=== PATIENT | female | born 1990 | race Caucasian/White ===

== ENCOUNTER 2020-01-15 00:34 | Day surgery (SDC) | payer OTHER, SELFPAY ==
[2020-01-01 12:32] VITALS: BMI 31.4
[2020-01-15] VITALS (8 sets, daily range): BP systolic 112–128; BP diastolic 72–90; PULSE 66–100; RESP 14–18; TEMP 36.2–36.4; O2SAT 94–100
[2020-01-15] MEDS: LACTATED RINGERS 1,000 ML 30 ML IV CONT ×2 (07:00→11:38)
--- NOTE | 2020-01-15 07:02 | WPDHPUPDATE1 ---
History and Physical Update Update Date/Time: 01/15/20 07:02 History and Physical has been reviewed, including an updated exam of the patient. There are NO changes in the patient's condition. Risks, benefits, and alternatives have been discussed and questions answered. Patient agrees to proceed with procedure.
[2020-01-15 07:36] LABS: Urine Cotinine NEGATIVE
--- NOTE | 2020-01-15 07:45 | P.PNAN_ITS ---
Anes - Initial Pre Proc Eval Procedure: Operation Date: 01/15/20 08:30 Proposed Procedures p Bilateral Breast Reduction - Ernesto Dukes MD Date/Time: 01/15/20 07:45 Surgeon: Ernesto Dukes MD Pre Op Diagnosis: Macromastia Patient Data Age: 29 Gender: F Height: 1.68 m Weight: 88.45 kg Allergies Allergy/AdvReac Type Severity Reaction Status Date / Time No Known Allergies Allergy Verified 01/15/20 07:44 Home Medications Medication Instructions Recorded Confirmed Type cholecalciferol (vitamin D3) 25 25 mcg PO DAILY 11/19/19 01/15/20 History mcg (1,000 unit) capsule levothyroxine 100 mcg tablet 100 mcg PO DAILY 11/19/19 01/15/20 History mecobalamin (vitamin B12) 1,000 1,000 mcg SUBLINGUAL DAILY 11/19/19 01/15/20 History mcg disintegrating tablet,sublingual hydrocodone 5 mg-acetaminophen 325 1 tablet PO Q6H PRN #15 tablet 01/02/20 01/15/20 Rx mg tablet ondansetron HCl 4 mg tablet 4 mg PO Q6H PRN #28 tablet 01/02/20 01/15/20 Rx Laboratory Tests 01/15/20 07:22 Cotinine Negative Patient hx anesthesia problems: none Family hx anesthesia problems: none [facility] Past Medical History Medical History (Updated 01/14/20 @ 09:13 by Kt Donato DO) Anxiety Hypothyroid Social History Social History Smoking status: Never smoker Alcohol intake: current Substance use: never Anes - Eval Final PreProcedure Day of Procedure 01/15/20 07:45 Patient weight: obese Heart: regular rate and rhythm Lungs: clear to auscultation and normal air movement Airway: Mallampati scale class II Neurological: alert and oriented Last oral intake: >/= 8 hours ASA classification: II Emergent: no Anesthetic plan: proceed Anesthesia type and monitoring: general LMA and standard monitoring Informed Consent: The patient's anesthetic plan and its attendant risks and benefits were discussed with the patient/family/POA. Questions were solicited and answers provided to the satisfaction of the patient/family/POA.
[2020-01-15] MEDS: ceFAZolin 2 GM/D5W 50 ML 2 GM/50 ML BAG IVPB (08:36)
--- NOTE | 2020-01-15 10:46 | SUR.OPER ---
ebl:30cc
--- NOTE | 2020-01-15 11:47 | PM.PROC ---
Procedure Note - Detailed Date of procedure: 01/15/20 Pre-op diagnosis: Macromastia Post-op diagnosis: same Procedure performed: Bilateral breast reduction Description of procedure: She is here today for bilateral breast reduction. Previously and again today the risks, benefits, alternatives were discussed in extensive detail. I wanted her to be very realistic about the risks involved as well as expectations. We discussed aftercare and what to monitor for. She understands we can never guarantee final breast size and there will always be asymmetry. I was very upfront and honest about the risks of sensation change and even nipple loss (). Made sure answered all of her questions to her satisfaction today and consent was obtained. She was marked in the preoperative holding area with their verification. The patient was taken to the operating room placed supine on the operating table. Anesthesia was provided by anesthesiology. She was prepped and draped in a standard sterile fashion. A surgical time-out was taken. Stab incisions were made and I tumessed with a tumescent solution. I marked out the nipple-areolar complex at 42 mm. I then de-epithelialized the pedicle. The pedicle was well left well more than 2 cm in thickness. I then removed the inferior portion of the breast as well as the central keel to get shape based on preoperative planning. At this point copiously irrigated with saline solution and verified a strict hemostasis. I reapproximated the pillars using a 2-0 PDS as well as along the IMF. I tailor tacked the breast into place with kapil. She was placed in a sitting position. She had a degress of shap / volume asymmetry and I corrected with with a 4mm Basket canula on power assisted liposuction using S.A.F.E. technique. I verified the nipple-areolar complex position based on preoperative markings, intraoperative measurements, and observation which were in full agreement. This nipple-areolar complex was marked at 42 mm in size. I then placed supine and de-epithelialized this. Nipple-areolar complex was inset with 3-0 Monocryl. I closed the vertical incision with 3-0 Monocryl in the IMF with 3-0 stratafix. Then everything was closed using a running subcuticular 4-0 Monocryl followed by Steri-Strips. A dressing was placed followed by surgical bra. Patient was awoke and taken to PACU without difficulty. All instrument sponge counts were correct at the end of the case. Anesthesia: GLMA Surgeon: Ernesto Dukes MD Estimated blood loss (mL): 30 Drains: No Packing: No Pathology: yes (Bilateral breast tissue) Complications: No immediate complications Condition: stable Disposition: PACU Findings: Tissue removed Right: 893 grams Left: 907 grams
--- NOTE | 2020-01-15 13:15 | SUR.PHASEII ---
1315: Called Dr. Dukes's office to report signifcant drainage noted from surgical site.
--- NOTE | 2020-01-15 14:01 | SUR.PHASEII ---
1340: 4x4 and new surgical bra applied to patient.
== END 2020-01-15 13:55 | disposition home or self-care (01) ==
PROVIDERS: PCP Internal Medicine; Visit Provider Surgery Plastic and Reconstructive Surgery
PROC: 0HBV0ZZ Excision of Bilateral Breast, Open Approach (ICD-10-PCS; CPT 19318; principal; 2020-01-15 08:30)
DX: N62 Hypertrophy of breast (principal); N60.32 Fibrosclerosis of left breast; N60.31 Fibrosclerosis of right breast; N60.42 Mammary duct ectasia of left breast; N60.41 Mammary duct ectasia of right breast; E03.9 Hypothyroidism, unspecified; F41.9 Anxiety disorder, unspecified; E66.9 Obesity, unspecified; Z68.31 Body mass index [BMI] 31.0-31.9, adult
CPT/HCPCS: 19318; 36415; 80307; 88305; J0131; J0171; J0690; J1100; J1170; J2250; J2405; J2704; J3010; J7120

== ENCOUNTER 2023-07-08 07:54 | Outpatient (CLI) | payer OTHER, SELFPAY ==
--- NOTE | 2023-07-08 08:03 | ECG_ITS ---
Measurements Intervals [place] Rate: 72 P: 28 [place]: 169 QRS: 36 QRSD: 98 T: 47 QT: 409 QTc: 450 Interpretive Statements REDUCED ECG QUALITY WITH BASELINE ARTIFACT SINUS RHYTHM GROSSLY NORMAL ECG NO PREVIOUS ECG AVAILABLE FOR COMPARISON Electronically Signed On 07-08-2023 14:44:33 CDT by Spencer Goodwin M.D.
[2023-07-08 08:37] LABS: Hematocrit 40.1 % (37.0-47.0); Hemoglobin 13.1 g/dL (12.0-15.0)
== END 2023-07-08 07:55 | disposition home or self-care (01) ==
PROVIDERS: Anesthesiology; PCP Internal Medicine; Visit Provider Surgery Plastic and Reconstructive Surgery
DX: Z01.812 Encounter for preprocedural laboratory examination (principal); Z01.810 Encounter for preprocedural cardiovascular examination; L57.4 Cutis laxa senilis; K42.9 Umbilical hernia without obstruction or gangrene
CPT/HCPCS: 36415; 85014; 85018; 93005

== ENCOUNTER 2023-07-12 01:08 | Day surgery (SDC) | payer OTHER, SELFPAY ==
[2023-07-06 14:54] VITALS: BMI 33.7
--- NOTE | 2023-07-06 15:18 | SUR.PREOP ---
Report to the Outpatient Waiting Room, entrance under the green pavilion located off [facility], at time 0630 on date 07/12/2023. Planned Procedure Time: 0830. Time changes happen often and if your time is changed the preop area will call you the afternoon before. - You and your visitor will be asked to self-screen and do not enter if you have any COVID symptoms. - A mask is optional within the hospital at this time. Patients may have clear liquids (water, carbonated beverages, clear teas, apple juice) until 3 hours prior to surgery with a maximum of 20 ounces- 0530. - No food from midnight until time of surgery - Infants may have breast milk until 4 hours before surgery, infant formula 6 hours prior to surgery. - Children will be allowed to drink immediately following surgery. If applicable, please bring a bottle or sippy cup to assist with drinking. Juice, water, soda, and popsicles are readily available. For infants on formula, please bring formula the day of surgery. Pacifiers are allowed. Take the following medications with a SIP of water the morning of surgery: Levothyroxine, Lexapro DO NOT STOP ANY OF YOUR OTHER PRESCRIPTION MEDICATIONS PRIOR TO SURGERY ?EXCEPT THE FOLLOWING Medications to discontinue per physician: Vitamins/supplements- 3 days Date to take last dose 07/09/2023 Please no make-up, nail indonesian, hairspray, perfume, deodorant, or body powder the day of surgery. No jewelry (including any body piercings) or valuables the day of surgery, leave them at home. Please take a shower or bath the morning of surgery with Hibiclens soap. Wear comfortable, loose fitting clothing. Children are encouraged to wear pajamas. - Jewelry must be removed prior to entering the operating room. Rings and piercings that are not removed may be cut off. - The hospital will not accept responsibility for valuables. - Please leave all valuables, including medications, at home the day of surgery. If you are going home after surgery, a licensed local company flatbed truck driver must drive you home. - NO public transportation without another adult if you receive anesthesia. - We recommend that an adult stay with you for 24 hours following discharge. - We also recommend that you do not drive, make important decision, drink alcoholic beverages, or take any drugs that were not prescribed by your health care provider for at least 24 hours after your discharge time. For Pediatric surgeries, we recommend two adults accompany the child home. Follow any additional instructions given to you from your surgeon. If you or anyone in your household have experienced Covid symptoms in the past week, please notify your surgeon or the nurse liaison at the phone number below for possible testing. Telephone instructions given to ____patient and asked if any additional questions and then verbalized understanding. Patient advised to call surgeon office or pre surgery nurse liaison [phone] if any additional questions.
[2023-07-12] VITALS (10 sets, daily range): BP systolic 106–150; BP diastolic 68–84; PULSE 65–91; RESP 12–20; TEMP 35.7–36.6; O2SAT 92–98
--- NOTE | 2023-07-12 07:16 | W.PM.PROC2 ---
Procedure Note - Detailed Date of Procedure 07/12/23 Pre-op Diagnosis skin laxity, Umbilical Hernia Post-op Diagnosis Same Procedure Performed Progressive tension abdominoplasty with suction lipectomy Surgeon Ernesto Dukes MD Anesthesia General Findings Tissue removed: 2218 grams Lipoaspirate: 3,350 cc Description of Procedure They are here today for the above procedures. Previously and again today the risks, benefits, alternatives were discussed in extensive detail. I wanted them to be very realistic about the risks involved as well as expectations. We discussed aftercare and what to monitor for. I was very upfront about the risks of wound breakdown leading to loss of skin, open wounds, and need for additional procedures with permanent abdominal deformity. We discussed DVT/PE risks and management. Made sure answered all of their questions to their satisfaction today and consent was obtained. They were marked in the preoperative holding area with their verification. The patient was taken to the operating room. Anesthesia was provided by anesthesiology. A Staton catheter was started. Placed prone on the operating room table with care taken to protect from injury. Prepped and draped in a standard sterile fashion. A surgical time-out was taken. Stab incisions were made and tumescent solution was infiltrated. Once adequate time was allowed for hemostasis a 5mm basket and 3mm multi hole cannula were utilized to complete suction lipectomy based on S.A.F.E. technique in multiple planes and passes. Suction lipectomy continued to result based on pre-operative planning, intra-operative observation, and rolling pinch test which were in full agreement. Patient was then placed supine with care taken to protect from injury. I placed the patient in a flexed position to verify the upper and lower markings would reach. I then placed supine. A thorough abdominal examination was completed. Stab incisions were made and tumescent solution infiltrated. Stab incisions were made and tumescent solution was infiltrated. Once adequate time was allowed for hemostasis a 5mm basket and 3mm multi hole cannula were utilized to complete suction lipectomy based on S.A.F.E. technique in multiple planes and passes. Suction lipectomy continued to result based on pre-operative planning, intra-operative observation, and rolling pinch test which were in full agreement. A 10 blade was used to make the upper incision. I continued dissection down to the level of fascia. Elevated just what was necessary for repair of the diastasis. I then again flexed the bed to verify the upper skin flap would reach the lower markings without tension. Once verified I placed her supine once again and a 10 blade used to make the lower incision. I elevated up to level the umbilicus and left the umbilicus intact on a well-vascularized stalk. The intervening tissue was removed. A 2 mm blunt cannula with 0.5% bupivicaine was injected deep to the fascia bilaterally. I plicated the diastasis recti using 0 PDO stratafix barbed suture. This was in 2 separate layers using 2 separate sutures as well. I repaired around the umbilicus leaving plenty of room for well-vascularized stalk of the umbilicus with 2-0 PDS. I also repaired lateral to the rectus using two layers of 0 PDO stratafix. The patient was flexed and starting from superior to inferior began plication using 2-0 Vicryl to obliterate all space in a standard progressive tension fashion. At the umbilicus I marked out the location of the skin and inset this with 3-0 Monocryl and 4-0 Vicryl. I continued the remainder of the plication using 2-0 Vicryl until I reached my lower planned scar line. I trimmed any excess skin of the upper flap making sure this was a tension-free closure. 15 Sumeet drain was placed. I then approximated using a 3 point suture with 2-0 Vicryl followed by 3-0 stratafix ,running subcuticular 4-0 Monocryl
--- NOTE | 2023-07-12 07:22 | WPDHPUPDATE1 ---
History and Physical Update Update Date/Time: 07/12/23 07:22 History and Physical has been reviewed, including an updated exam of the patient. There are NO changes in the patient's condition. Risks, benefits, and alternatives have been discussed and questions answered. Patient agrees to proceed with procedure.
--- NOTE | 2023-07-12 07:22 | PM.IMHP ---
H&P: HPI History of Present Illness Date/Time: 07/12/23 07:22 Chief Complaint: umbilical hernia Narrative: 32 yo woman presents for umbilical hernia in conjunction with cosmetic surgery with Dr. Dukes. She reports no changes since last seen in office. Review of Systems Review of Systems: All systems reviewed & are unremarkable except as noted in HPI and below Constitutional: Constitutional: Denies chills, Denies fever(s), Denies headache(s) and Denies weight loss Eyes: Eyes: Denies change in vision ENT: Denies dizziness, Denies headache(s), Denies neck mass and Denies throat swelling Cardiovascular: Cardiovascular: Denies chest pain, Denies lightheadedness and Denies dyspnea Respiratory: Respiratory: Denies cough, Denies dyspnea and Denies wheezing Gastrointestinal: Gastrointestinal: Denies abdominal pain, Denies change in bowel habits, Denies nausea and Denies vomiting Genitourinary: Genitourinary: Denies hematuria and Denies dysuria Musculoskeletal: Musculoskeletal: Reports as per HPI Integumentary/Breasts: Skin/Breast: Reports as per HPI Neurologic: Denies dizziness and Denies headache(s) Allergic/Immunologic: Allergic/Immunologic: Denies throat swelling and Denies wheezing PMFSH Past Medical History Medical History Anxiety Hypothyroid Surgical History Surgical History H/O bilateral breast reduction surgery Family History Family History Mother Cerebrovascular accident Hypothyroid Other Heart disease Hypertension Social History Social History Smoking status: Never smoker Alcohol intake: current Alcohol use details: 1-2 per month Substance use: never Living arrangements: with family Occupation/Education: occupation 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[employer] Spiritual care concerns: No Meds Home Medications and Allergies Home Medications Medication Instructions Recorded Confirmed Type cholecalciferol (vitamin D3) 25 25 mcg PO DAILY 11/19/19 07/06/23 History mcg (1,000 unit) capsule mecobalamin (vitamin B12) 1,000 1,000 mcg sublingual DAILY 11/19/19 07/06/23 History mcg disintegrating tablet,sublingual escitalopram oxalate 5 mg tablet 5 mg PO DAILY 03/29/23 07/06/23 History (Lexapro) Adult Probiotic See Rx Instructions .Route .COMPLEX 07/06/23 07/06/23 History biotin 1 mg capsule 1 mg PO DAILY 07/06/23 07/06/23 History levothyroxine 112 mcg tablet 112 mcg PO DAILY 07/06/23 07/06/23 History (Synthroid) Allergies Allergy/AdvReac Type Severity Reaction Status Date / Time No Known Allergies Allergy Verified 07/12/23 06:53 Exam Const: General: no acute distress and alert Orientation/consciousness: patient oriented x3 HENMT: Head: normocephalic and atraumatic Ears: hearing grossly normal bilaterally Face/Nose/Sinus: Normal nares present Mouth: Yes Normal oral and palatal mucosa present Eyes: Periorbital: periorbital findings normal Sclera: sclerae normal EOM: EOMs intact bilaterally Neck: Neck: normal visual inspection, no lymphadenopathy and trachea midline Chest: Chest palpation & inspection: normal inspection of the chest Resp: Effort & Inspection: normal respiratory effort Auscultation: clear to auscultation bilaterally Cardio: Jugular venous distension: no JVD Rate: regular rate Rhythm: regular rhythm Heart sounds: S1 normal heart sound present and S2 normal heart sound present Peripheral pulses: Peripheral pulses 2+ throughout GI: Inspection: normal to inspection GI Palp: Yes Soft to palpation, No Tenderness to palpation present (GI), No Guarding due to palpation present (GI), Yes Hernia present umbilical < 3 cm and No Rebound tenderness present Percussion: Yes normal to percussion
[2023-07-12 07:27] LABS: Urine Cotinine NEGATIVE
[2023-07-12] MEDS: ACETAMINOPHEN 500 MG TABLET 1000 MG PO (07:40)
[2023-07-12] MEDS: LACTATED RINGERS 1,000 ML 30 ML IV CONT ×2 (07:45→13:17)
[2023-07-12] MEDS: TRANEXAMIC ACID 1,000MG/ISO100 1,000 MG/100 ML BAG 200 MG IVPB (07:45)
[2023-07-12] MEDS: KETOROLAC 15 MG/ML VIAL (*BKC) IV PUSH (07:46)
--- NOTE | 2023-07-12 08:13 | WPDHPUPDATE1 ---
History and Physical Update Update Date/Time: 07/12/23 08:13 History and Physical has been reviewed, including an updated exam of the patient. There are NO changes in the patient's condition. Risks, benefits, and alternatives have been discussed and questions answered. Patient agrees to proceed with procedure.
--- NOTE | 2023-07-12 08:18 | WPDANESEPPF ---
Anes - Initial Pre Proc Eval Procedure: Operation Date: 07/12/23 08:30 Proposed Procedures p Abdominoplasty with Liposuction - Ernesto Dukes MD s Open Umbilical Hernia Repair - Rashawn Marin DO Date/Time: 07/12/23 08:18 Surgeon: Ernesto Dukes MD Pre Op Diagnosis: skin laxity, Umbilical Hernia Patient Data Age: 32 Gender: F Height: 1.68 m Weight: 93.7 kg Last Vital Signs Temp 97.1 F L 07/12/23 06:53 Pulse 76 07/12/23 06:53 Resp 20 07/12/23 06:53 BP 122/84 07/12/23 06:53 Pulse Ox 97 07/12/23 06:53 O2 Del Method Room Air 07/12/23 06:53 Allergies Allergy/AdvReac Type Severity Reaction Status Date / Time No Known Allergies Allergy Verified 07/12/23 06:53 Home Medications Medication Instructions Recorded Confirmed Type cholecalciferol (vitamin D3) 25 25 mcg PO DAILY 11/19/19 07/06/23 History mcg (1,000 unit) capsule mecobalamin (vitamin B12) 1,000 1,000 mcg sublingual DAILY 11/19/19 07/06/23 History mcg disintegrating tablet,sublingual escitalopram oxalate 5 mg tablet 5 mg PO DAILY 03/29/23 07/06/23 History (Lexapro) Adult Probiotic See Rx Instructions .Route .COMPLEX 07/06/23 07/06/23 History biotin 1 mg capsule 1 mg PO DAILY 07/06/23 07/06/23 History levothyroxine 112 mcg tablet 112 mcg PO DAILY 07/06/23 07/06/23 History (Synthroid) Laboratory Tests 07/12/23 06:50 Cotinine Negative Patient hx anesthesia problems: none Family hx anesthesia problems: none Results Review: All pre-operative results and documents have been reviewed as part of the pre-operative evaluation. 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 Informed Consent: The patient's anesthetic plan and its attendant risks and benefits were discussed with the patient/family/POA. Questions were solicited and answers provided to the satisfaction of the patient/family/POA.
[2023-07-12] MEDS: ceFAZolin 2 GM/D5W 50 ML 2 GM/50 ML BAG IVPB (08:32)
[2023-07-12] MEDS: LACTATED RINGERS IRRIG 1,000 ML, LIDOCAINE HCL 1% LOCAL INJ 50 ML, EPINEPHrine HCL INJ ... INFILTRATE (08:32)
--- NOTE | 2023-07-12 13:07 | W.PM.PROC2 ---
Procedure Note - Detailed Date of Procedure 07/12/23 Pre-op Diagnosis skin laxity, Umbilical Hernia Post-op Diagnosis Same (1 cm umbilical hernia) Procedure Performed Open 1 cm umbilical hernia repair Surgeon Rashawn Marin, DO Anesthesia General Indications This is a 32-year-old woman who presents with a small umbilical hernia. She was seen by Plastic surgery for abdominal plasty and liposuction and was found to have a small hernia at that time. She did state that this was noticeable during . She he notices a bulge at the hernia site but does not have much pain associated with it. Discussions were made with the patient about treatment options and decision was made to proceed with open umbilical hernia repair at the time of abdominal plasty. Findings Open umbilical hernia repair was performed. The patient was found to have a 1 cm umbilical hernia. This was repaired once the periumbilical region had been cleared for the abdominal plasty. The decision was made to repair this primarily using 0 Ethibond simple interrupted sutures. No specimens were obtained for pathology from the hernia repair. Description of Procedure Procedure as well as risks, benefits, and alternatives were discussed with the patient. Written consent was obtained and placed in chart prior to procedure. Patient was brought back to surgical suite. She was placed supine on operating table. Time-out was done to confirm patient and procedure. She was then intubated by the anesthesia department. Her abdomen was prepped and draped in sterile fashion using chlorhexidine prep. After Dr. Dukes had performed his portion of the abdominal plasty, I was called in to proceed with umbilical hernia repair. The umbilical skin was carefully inspected and a 1 cm incision was made in the linea alba just inferior to the umbilical stalk using electrocautery. This then allowed me to carefully reduce the preperitoneal fat from within the hernia defect from just inferior to the hernia. Once all of the preperitoneal fat was reduced, I was then able to visualize the fascial edges of the hernia defect. The hernia only measured about 1 cm. The fascial edges were then reapproximated using 0 Ethibond simple interrupted sutures. Once this was repaired from the underside of the hernia defect, I then closed the fascia on the linea alba but just inferior to the umbilicus using 0 Ethibond simple interrupted sutures as well. The repair was inspected and appeared secure. Dr. Dukes was then called back in to complete his portion of the abdominal plasty. Please refer to his operative report for details of his procedure. Estimated Blood Loss 125 Complications No immediate complications Condition Stable Disposition Observation [facility] Billing Surgery - Charge Forward: Surgery Billing
[2023-07-12] MEDS: ONDANSETRON INJ 4 MG/2 ML VIAL IV PUSH ×2 (14:02→20:51)
[2023-07-12] MEDS: fentaNYL CITRATE INJ (*CRX) 100 MCG/2 ML VIAL 25 MCG IV PUSH ×2 (14:42→14:45)
[2023-07-12] MEDS: LACTATED RINGERS 1,000 ML 125 ML IV CONT (15:30)
--- NOTE | 2023-07-12 15:37 | OBPPTRN ---
1505 Patient transferred to post room #292 via bed. Oriented to unit, room, information board, admission packet and security measures. Patient verbalizes understanding.
[2023-07-12] MEDS: KETOROLAC 10 MG TABLET PO (18:19)
[2023-07-12] MEDS: carisoprodoL (*CRX) 350 MG TABLET PO (18:21)
--- NOTE | 2023-07-12 20:45 | PC.NURSE ---
Pt called this RN into room due to experiencing shortness of breath, upon assessment patient had SPO2 of 98% and breathing was even with respirations at 18. She experienced two emesis rounds and was feeling much better.
[2023-07-12] MEDS: oxyCODONE/ACETAMINOPHEN (*CRX) 5-325 MG TABLET PO (20:50)
[2023-07-12] MEDS: DOCUSATE SODIUM 100 MG CAPSULE PO (20:50)
[2023-07-12] MEDS: ENOXAPARIN 40 MG/0.4 ML SYRINGE SUB-Q (20:51)
[2023-07-13] MEDS: KETOROLAC 10 MG TABLET PO ×2 (00:18→06:23)
[2023-07-13] MEDS: carisoprodoL (*CRX) 350 MG TABLET PO ×2 (00:18→06:23)
[2023-07-13 00:20] VITALS: BP 114/74; PULSE 94; RESP 18; TEMP 37.1; O2SAT 96
[2023-07-13 00:34] VITALS: BP 114/74; PULSE 94; RESP 18; TEMP 37.1; O2SAT 96
[2023-07-13 05:02] VITALS: BP 104/69; PULSE 105; RESP 18; TEMP 36.6; O2SAT 95
--- NOTE | 2023-07-13 06:24 | WPDPN ---
Progress Note: A&P Assessment and Plan (1) Skin laxity: Code(s): L57.4 - Cutis laxa senilis Status: Acute Assessment and Plan: Doing well after progressive tension abdominoplasty with suction lipectomy (by me) and umbilical hernia repair (by Dr. Marin) . Will discharge home. Today we had a lengthy discussion about the care. Activity limitations. What to monitor for. What is an emergency and when to dial 911 / proceed to the ER. This was a lengthy open ended conversation making sure they were well informed. Answered all their questions. They voiced a clear understanding. Will discharge home. Call with any questions or concerns in the meantime. (2) Localized adiposity: Code(s): E65 - Localized adiposity Status: Acute (3) Umbilical hernia: Qualifiers: Obstruction and gangrene presence: without obstruction or gangrene Qualified Code(s): K42.9 - Umbilical hernia without obstruction or gangrene Code(s): K42.9 - Umbilical hernia without obstruction or gangrene Status: Acute Subjective Date/time seen: 07/13/23 06:24 Interval history: Doing well overnight. Some drainage. No f/c. A couple episodes of emesis overnight, now no n/v. No SOB. No CP. No calf tenderness. She has been ambulating. Review of Systems Review of Systems: All systems reviewed & are unremarkable except as noted in HPI and below Exam Narrative: Alert & Oriented NOD Respiratory unlabored Abdomen is healing well. No signs of infection. No hematoma. No seroma. Good color and capillary refill. No calf tenderness. Negative Fernando's Objective Data Vital Signs Vital Signs: Vital Signs - 24 hr 07/12/23 06:53 07/12/23 13:20 07/12/23 13:35 Temperature 36.2 C L 36.1 C L Pulse Rate 76 80 90 Respiratory Rate 20 20 20 Blood Pressure 122/84 120/69 135/69 Pulse Oximetry 97 98 97 Oxygen Delivery Room Air Simple Face Mask Simple Face Mask Oxygen Flow Rate 8 8 07/12/23 13:50 07/12/23 14:05 07/12/23 14:20 Temperature Pulse Rate 82 86 88 Respiratory Rate 20 12 14 Blood Pressure 142/73 H 150/78 H 133/73 Pulse Oximetry 97 92 95 Oxygen Delivery Simple Face Mask Room Air Room Air Oxygen Flow Rate 8 08/29/23 14:35 07/12/23 14:50 07/12/23 15:10 Temperature 35.7 C L Pulse Rate 86 90 91 Respiratory Rate 16 16 18 Blood Pressure 116/82 106/83 106/68 Pulse Oximetry 93 93 92 Oxygen Delivery Room Air Room Air Oxygen Flow Rate 07/12/23 15:02 07/12/23 19:10 07/12/23 19:10 Temperature 36.6 C Pulse Rate 65 Respiratory Rate 16 Blood Pressure 123/83 Pulse Oximetry 97 Oxygen Delivery Room Air Room Air Oxygen Flow Rate 07/13/23 00:20 07/13/23 00:34 07/13/23 00:34 Temperature 37.1 C 37.1 C Pulse Rate 94 94 Respiratory Rate 18 18 Blood Pressure 114/74 114/74 Pulse Oximetry 96 96 Oxygen Delivery Room Air Oxygen Flow Rate 07/13/23 05:02 07/13/23 05:02 Temperature 36.6 C Pulse Rate 105 H Respiratory Rate 18 Blood Pressure 104/69 Pulse Oximetry 95 Oxygen Delivery Room Air Oxygen Flow Rate Intake/Output Intake/Output: Intake & Output 07/10/23 07/11/23 07/12/23 07/13/23 23:59 23:59 23:59 23:59 Intake Total 2820 1000 Output Total 930 1670 Balance 1890 -670 Meds/Results Medications: Active Medications Generic Name Dose Route Start Last Admin Trade Name Freq PRN Reason Stop Dose Admin Carisoprodol 350 mg 07/12/23 18:00 07/13/23 06:23 Carisoprodol (*Crx) 350 Mg Tablet PO 350 mg Q6HR JAMEEL Administration Diazepam 5 mg 07/12/23 13:05 Diazepam (*Crx) 5 Mg Tablet PO TID PRN Anxiety Docusate Sodium 100 mg 07/12/23 21:00 07/12/23 20:50 Docusate Sodium 100 Mg Capsule PO 100 mg Q12HR JAMEEL Administration Enoxaparin Sodium 40 mg 07/12/23 20:00 07/12/23 20:51 Enoxaparin 40 Mg/0.4 Ml Syringe SUB-Q 40 mg Q24H JAMEEL Administration Escitalopram Oxalate 5 mg
--- NOTE | 2023-07-13 06:29 | PM.DS ---
DS: Admitting Diagnosis Discharge Date 07/13/2023 Admitting Diagnosis 1. Skin laxity 2. Localized adiposity 3. Umbilical hernia DS: Discharge Diagnosis Discharge Diagnosis (1) Skin laxity: Code(s): L57.4 - Cutis laxa senilis Status: Acute (2) Localized adiposity: Code(s): E65 - Localized adiposity Status: Acute (3) Umbilical hernia: Qualifiers: Obstruction and gangrene presence: without obstruction or gangrene Qualified Code(s): K42.9 - Umbilical hernia without obstruction or gangrene Code(s): K42.9 - Umbilical hernia without obstruction or gangrene Status: Acute DS: Summary Hospital Course Hospital Course: Patient underwent progressive tension abdominoplasty with suction lipectomy (by ) and umbical hernia repair (by Dr. Marin). Post operatively has done well. Will discharge home. Time Spent with Patient Time attestation: Total time spent providing and/or coordinating discharge services: Exam Narrative: Alert & Oriented NOD Respiratory unlabored Abdomen is healing well. No signs of infection. No hematoma. No seroma. Good color and capillary refill. No calf tenderness. Negative Fernando's DS: Data Data Completed and Pending Labs on day of discharge: Labs from last 24 hours 07/12/23 06:50 Cotinine Negative Discharge Plan Discharge Patient Disposition: Home, Self-Care Discharge Instructions: POST OPERATIVE DISCHARGE INSTRUCTIONS ERNESTO DUKES M.D. [facility] PLASTIC SURGERY [facility] [place] [address] [address] for 24 hours after anesthesia and while you are taking pain medication. Take all prescribed medication as directed Diet as tolerated. No lifting or activity that raises blood pressure for 48 hours. Regular walking / ambulation. May shower 24 hours after surgery. Once you shower do not take pain medication before showering as the combination of medication and heat may cause you to feel dizzy or pass out. No pools or tubs for 2 weeks. Slowly stand up straight as tolerated. No straining or lifting more than 20 pounds. If no bowel movement within 24 hours may use laxative. Call with any questions or concerns. Dressing Care: Continue abdominal binder / foam 23 hours per day. If you have any questions or concerns, please call the office . If it is after hours you will be directed to the test consultant exchange. Shortness of breath, chest pain, or other medical emergency dial 911 / proceed to the Emergency Room. Stand Alone Forms: General Discharge Instructions Follow-up/Referrals: Ernesto Dukes MD [Physician] - 1 Week Discharge Medications: Continued escitalopram oxalate [Lexapro] 5 mg tablet 5 mg PO DAILY Rx Instructions: Takes 1 tablet daily in AM. cholecalciferol (vitamin D3) 25 mcg (1,000 unit) capsule 25 mcg PO DAILY Rx Instructions: Takes daily in AM. mecobalamin (vitamin B12) 1,000 mcg tablet,disintegrating 1,000 mcg SUBLINGUAL DAILY Rx Instructions: Takes 1 daily in AM. Adult Probiotic See Rx Instructions .ROUTE .COMPLEX Rx Instructions: Takes 1 daily in AM. levothyroxine [Synthroid] 112 mcg tablet 112 mcg PO DAILY biotin 1 mg Capsule 1 mg PO DAILY
[2023-07-13] MEDS: LEVOTHYROXINE SODIUM 112 MCG TABLET PO (07:25)
[2023-07-13] MEDS: ESCITALOPRAM OXALATE 5 MG TABLET PO (07:25)
[2023-07-13] MEDS: DOCUSATE SODIUM 100 MG CAPSULE PO (07:25)
[2023-07-13] MEDS: oxyCODONE/ACETAMINOPHEN (*CRX) 5-325 MG TABLET PO (07:34)
[2023-07-13 08:05] VITALS: BP 96/69; PULSE 86; RESP 18; TEMP 36.7; O2SAT 97
--- NOTE | 2023-07-13 10:26 | WPDANESPN ---
Anes - Prog Note Post-Op Date/Time: 07/13/23 10:26 Cardiovascular status: normal Respiratory status: normal Airway patency: baseline Mental status: baseline Post-Op hydration status: normal Vital Signs: Last Vital Signs Temp 36.7 C 07/13/23 08:05 Pulse 86 07/13/23 08:05 Resp 18 07/13/23 08:05 BP 96/69 L 07/13/23 08:05 Pulse Ox 97 07/13/23 08:05 O2 Del Method Room Air 07/13/23 05:02 O2 Flow Rate 8 07/12/23 13:50 Pain Score (VAS): 0 I/O: Intake & Output 07/12/23 07/13/23 07/13/23 23:59 07:59 15:59 Intake Total 970 1000 Output Total 930 1670 Balance 40 -670 Post-procedural complaints: none Patient Feedback: Patient satisfied with anesthetic care.
== END 2023-07-13 11:50 | disposition home or self-care (01) ==
LOC: ANHSURGERY 07:26 → ANHOB2 15:00
PROVIDERS: Surgery; PCP Internal Medicine; Visit Provider Surgery Plastic and Reconstructive Surgery
PROC: (CPT 15830; principal; 2023-07-12 08:30)
PROC: (CPT 49591; 2023-07-12 08:30)
DX: Z41.1 Encounter for cosmetic surgery (principal); K42.9 Umbilical hernia without obstruction or gangrene; L57.4 Cutis laxa senilis; E65 Localized adiposity; E03.9 Hypothyroidism, unspecified; F41.9 Anxiety disorder, unspecified; Z79.899 Other long term (current) drug therapy
CPT/HCPCS: 49591; 15830; 15847; 15877; 80307; 99199; A9270; J0171; J0461; J0690; J1100; J1170; J1650; J1885; J2250; J2405; J2704; J3010; J7120